=== PATIENT | male | born 1990 | race Caucasian/White ===

== ENCOUNTER 2017-11-26 04:56 | Emergency (ER) | payer OTHER ==
[2017-11-26] MEDS ORDERED: IBUPROFEN 200 MG TAB PO ONE (05:32)
--- NOTE | 2017-11-26 06:12 | CPEKG ---
Test Reason : OPEN Blood Pressure : / mmHG Vent. Rate : 066 BPM Atrial Rate : 066 BPM P-R Int : 171 ms QRS Dur : 093 ms QT Int : 415 ms P-R-T Axes : 007 075 052 degrees QTc Int : 435 ms Sinus rhythm Confirmed by Ana Macias ([id number]) on 11/26/2017 6:12:40 AM Referred By: Confirmed By:Ana Macias
[2017-11-26 06:24] LABS: PLATELET COUNT 228 10^3/uL (150-400)
--- NOTE | 2017-11-26 06:41 | EDPHY ---
H & P Stated Complaint: CP X1 HR, TIGHT=NESS TO MID CHEST WITH SOB Time Seen by Provider: 11/26/17 05:03 HPI/ROS: HPI The patient presents with chest pain which began at about 345. He awoke tonight and went over to his lab where he had left his laptop computer. While he was walking to the elevator he developed slow onset of sharp chest pain which he feels in his anterior chest. The pain has been constant, his present in his back as well, is worse when he stands up and improved when he lies flat. He does not have any shortness of breath, nausea, vomiting, dizziness, diaphoresis. He did have rhinorrhea and a sore throat 2 days ago. He has not had any fever. REVIEW OF SYSTEMS 10 systems were reviewed and negative with the exception of the elements mentioned in the history of present illness. PMHx: Seasonal allergies Soc Hx: Student at [employer] FHx: Grandfather with PA PHYSICAL General Appearance: Alert, no distress Eyes: Pupils equal and round no pallor or injection ENT, Mouth: Mucous membranes moist Respiratory: There are no retractions, lungs are clear to auscultation Cardiovascular: Regular rate and rhythm Gastrointestinal: Abdomen is soft and non-tender, no masses, bowel sounds normal Neurological: A&O, moves all extremities Skin: Warm and dry, no rashes Musculoskeletal: Neck is supple non tender Extremities: symmetrical, full range of motion Psychiatric: Patient is oriented X 3, there is no agitation Source: Patient Exam Limitations: No limitations - Personal History Current Tetanus/Diphtheria Vaccine: Unsure Current Tetanus Diphtheria and Acellular Pertussis (TDAP): Unsure - Medical/Surgical History Hx Asthma: No Hx Chronic Respiratory Disease: No Hx Diabetes: No Hx Cardiac Disease: No Hx Renal Disease: No Hx Cirrhosis: No Hx Alcoholism: No Hx HIV/AIDS: No Hx Splenectomy or Spleen Trauma: No Other PMH: DENIES - Social History Smoking Status: Never smoked Constitutional: Initial Vital Signs Temperature (C) 36.6 C 11/26/17 05:00 Heart Rate 71 11/26/17 05:00 Respiratory Rate 18 11/26/17 05:00 Blood Pressure 124/61 H 11/26/17 05:00 O2 Sat (%) 97 11/26/17 05:00 O2 Delivery Mode Room Air Allergies/Adverse Reactions: Cephalosporins Allergy (Verified 11/26/17 05:01) Home Medications: Medication Instructions Recorded NK [No Known Home Meds] 11/26/17 Medical Decision Making - Diagnostics EKG Interpretation: EKG: Complete interpretation has been separately recorded in the [facility] archive. Summary impression: Normal sinus rhythm Imaging Results: Chest x-ray two view shows no infiltrate, no cardiomegaly, no effusion, interpreted by me, radiology interpretation is pending. Differential Diagnosis: 27-year-old healthy male presents with chest pain which began at about 3:45 a.m. This morning which is sharp in throughout his anterior chest. Differential diagnosis includes ACS, pericarditis, costochondritis, anxiety, GERD, less likely PE given that he is PERC negative. In the emergency department, patient was given a dose of ibuprofen with some improvement in his symptoms. EKG, chest x-ray, troponin, CBC and chemistries were all unremarkable. I suspect he is suffering from postviral costochondritis given his recent URI type symptoms. I have discussed the diagnosis and treatment plan with him. He will be discharged from the emergency department with return precautions given. - Data Points Laboratory Results: Laboratory Results 11/26/17 06:00 11/26/17 06:00 11/26/17 11/26/17 11/26/17 06:13 06:00 06:00 WBC 5.80 10^3/uL 10^3/uL (3.80-9.50) RBC 5.51 10^6/uL 10^6/uL (4.40-6.38) Hgb 15.9 g/dL g/dL (13.7-17.5) Hct 47.8 % % (40.0-51.0) MCV 86.8 fL fL (81.5-99.8) MCH 28.9 pg pg (27.9-34.1) MCHC 33.3 g/dL g/dL (32.4-36.7) RDW 12.7 % % (11.5-15.2) Plt Count 228 10^3/uL 10^3/uL (150-400) MPV 10.8 fL fL (8.7-11.7) Neut % (Auto) 48.9 % % (39.3-74.2) Lymph % (Auto) 37.1 % % (15.0-45.0) [place] % (Auto) 8.1 % % (4.5-13.0) Eos % (Auto) 5.0 % % (0.6-7.6) Baso % (Auto) 0.7 % % (0.3-1.7) Nucleat RBC Rel Count 0.0 % % (0.0-0.2) Absolute Neuts (auto) 2.84 10^3/uL 10^3/uL (1.70-6.50) Absolute Lymphs (auto) 2.15 10^3/uL 10^3/uL (1.00-3.00) Absolute Monos (auto) 0.47 10^3/uL 10^3/uL (0.30-0.80) Absolute Eos (auto) 0.29 10^3/uL 10^3/uL (0.03-0.40) Absolute Basos (auto) 0.04 10^3/uL 10^3/uL (0.02-0.10) Absolute Nucleated RBC 0.00 10^3/uL 10^3/uL (0-0.01) Immature Gran % 0.2 % % (0.0-1.1) Immature Gran # 0.01 10^3/uL 10^3/uL (0.00-0.10) Sodium 142 mEq/L mEq/L (135-145) Potassium 4.4 mEq/L mEq/L (3.3-5.0) Chloride 106 mEq/L mEq/L (97-110) Carbon Dioxide 25 mEq/l mEq/l (22-31) Anion Gap 11 mEq/L mEq/L (8-16) BUN 17 mg/dL mg/dL (7-23) Creatinine 0.8 mg/dL mg/dL (0.7-1.3) Estimated GFR > 60 Glucose 88 mg/dL mg/dL (70-100) Calcium 10.1 mg/dL mg/dL (8.5-10.4) POC Troponin I 0.00 ng/mL ng/mL (0.00-0.08) Medications Given: Discontinued Medications Ibuprofen (Motrin) 400 mg PO EDNOW ONE Stop: 11/26/17 05:33 Last Admin: 11/26/17 05:44 Dose: 400 mg Point of Care Test Results: Chemistry 10/08/18 06:13 POC Troponin I 0.00 ng/mL ng/mL (0.00-0.08) Departure - Departure Disposition: Home, Routine, Self-Care Clinical Impression: Chest pain Qualifiers: Chest pain type: unspecified Qualified Code(s): R07.9 - Chest pain, unspecified Condition: Good Instructions: Costochondritis (ED) Additional Instructions: I recommend that you use ibuprofen 400 mg every 6 hr for this. We expect that you will get better in the next 1-2 weeks. If your worse in any way, you should return to the emergency department for recheck. Referrals: JONO Byrnes,. [Clinic] - As per Instructions
[2017-11-26 06:57] VITALS: BP 111/58
== END 2017-11-26 06:57 | disposition home or self-care (01) ==
DX: R07.9 Chest pain, unspecified (principal); J98.09 Other diseases of bronchus, not elsewhere classified
CPT/HCPCS: 84484-PO